=== PATIENT | male | born 1970 ===

== ENCOUNTER 2022-04-28 08:00 | Outpatient (RCR) | payer SELFPAY | END 2022-04-29 | LOC: PT 08:00 | PROVIDERS: ATTEND Specialist | DX: M75.81 Other shoulder lesions, right shoulder (principal) ==

== ENCOUNTER 2022-05-05 08:00 | Outpatient (RCR) | payer SELFPAY | END 2022-05-30 | LOC: PT 08:00 | PROVIDERS: ATTEND Specialist | DX: M75.81 Other shoulder lesions, right shoulder (principal) ==